=== PATIENT | female | born 1960 | race Caucasian/White ===

== ENCOUNTER 2019-07-08 10:14 | Day surgery (SDC) | payer BC, OTHER ==
[~2019-07-08] VITALS: Ht 154.9 cm; Wt 67.5 kg
[~2019-07-08 10:14] MED LIST: GLIMEPIRIDE; JANUVIA; SIMVASTATIN
[2019-07-08 10:44] VITALS: Ht 154.9 cm; Wt 67.5 kg
[2019-07-08] MEDS ORDERED: LIDOCAINE 4% SOLUTION 50 ML BTL ONE (11:05)
[2019-07-08 11:12] VITALS: BP 137/71; PULSE 65; RESP 18
[2019-07-08 11:27] VITALS: BP 134/78; PULSE 69; RESP 16
[2019-07-08] MEDS ORDERED: MIDAZOLAM 1 MG/ML 2 ML INJ ONE ×2 (11:43)
[2019-07-08] MEDS ORDERED: FENTAnyl 50 MCG/ML VIAL ONE (11:43)
[2019-07-08 12:00] VITALS: BP 131/74; PULSE 66; RESP 18
== END 2019-07-08 12:21 | disposition home or self-care (01) ==
LOC: GIL 10:14
PROVIDERS: ATTEND Internal Medicine Gastroenterology
DX: K29.30 Chronic superficial gastritis without bleeding (principal); K21.0 Gastro-esophageal reflux disease with esophagitis; E11.9 Type 2 diabetes mellitus without complications
CPT/HCPCS: 43239; 82962; 88305; 88312; 88313; J2250; J3010; Z7610